=== PATIENT | male | born 1950 | race Caucasian/White ===

== ENCOUNTER 2024-02-03 20:10 | Emergency (ER) | payer OTHER ==
[~2024-02-03] VITALS: Ht 160 cm; Wt 69.0 kg
[2024-02-03 20:21] VITALS: O2SAT 98
[2024-02-03 20:58] LABS: HEMATOCRIT. 22.8 % (42.0-52.0); HEMOGLOBIN. 7.7 g/dL (14.0-18.0); MEAN CORPUSCULAR HEMOGLOBIN 29.9 pg (28.0-32.0); MEAN CORPUSCULAR HGB CONC 33.9 g/dL (31.0-37.0); MEAN CORPUSCULAR VOLUME 88.4 fL (80.0-94.0); MEAN PLATELET VOLUME 9.2 fl (7.4-10.4); PLATELET 190 x1000/uL (130-400); RED BLOOD CELL COUNT 2.57 mill/uL (4.7-6.1); RED CELL DISTRIBUTION WIDTH 15.1 % (11.6-14.6); WHITE BLOOD COUNT 7.8 x1000/uL (4.5-11.0)
[2024-02-03 20:59] LABS: DIFFERENTIAL COMMENT 1
[2024-02-03 21:04] LABS: CHLORIDE 98 mEq/L (98-107); POTASSIUM 3.9 mEq/L (3.5-5.1); SODIUM 136 mEq/L (136-145)
[2024-02-03 21:05] LABS: CALCIUM 7.5 mg/dL (8.7-10.4); CARBON DIOXIDE 24 mEq/L (21-32)
[2024-02-03 21:10] LABS: GLUCOSE 150 mg/dL (70-105); UREA NITROGEN BLOOD 94 mg/dL (9-23)
[2024-02-03 21:12] LABS: ALANINE AMINOTRANSFERASE 149 IU/L (10-49); ALBUMIN 3.1 g/dL (3.2-4.8); ASPARTATE AMINOTRANSFERASE 93 IU/L (<34); BILIRUBIN TOTAL 0.2 mg/dL (0.1-1.0); PROTEIN TOTAL 6.3 g/dL (6.0-8.3); TROPONIN I HIGH SENSITIVITY 33 ng/L (3.0-53)
[2024-02-03 21:13] LABS: BILIRUBIN DIRECT < 0.1 mg/dL (<=3.0)
[2024-02-03 21:14] LABS: PLATELET ESTIMATE NORMAL
[2024-02-03 21:17] LABS: CREATININE 8.2 mg/dL (0.6-1.3)
[2024-02-04 00:52] VITALS: BP 140/69; PULSE 54; RESP 14; TEMP 98.6
== END 2024-02-04 00:57 | disposition short-term general hospital (02) ==
LOC: ER 20:10
DX: I11.0 Hypertensive heart disease with heart failure (principal); I50.9 Heart failure, unspecified; E87.70 Fluid overload, unspecified; I12.0 Hypertensive chronic kidney disease with stage 5 chronic kidney disease or end stage renal disease; E11.22 Type 2 diabetes mellitus with diabetic chronic kidney disease; N18.6 End stage renal disease
CPT/HCPCS: 36415; 71045; 80048; 80076; 83880; 84484; 85025; 99285